=== PATIENT | male | born 1990 | race Caucasian/White ===

== ENCOUNTER 2025-02-21 09:02 | Emergency (ER) | payer OTHER ==
[~2025-02-21] VITALS: Ht 170.2 cm; Wt 97.2 kg
[2025-02-21] MEDS ORDERED: FAMOTIDINE 20 MG/ 2 ML VIAL IV ONE (09:15)
[2025-02-21] MEDS ORDERED: methylPREDNISolone SOD SUCC 125 MG/2 ML VIAL IV ONE (09:15)
[2025-02-21] MEDS ORDERED: diphenhydrAMINE HCL 50 MG/ML VIAL IV ONE (09:15)
[2025-02-21 10:11] VITALS: BP 118/80
== END 2025-02-21 10:10 | disposition home or self-care (01) ==
LOC: ED 09:02
DX: T78.1XXA Other adverse food reactions, not elsewhere classified, initial encounter (principal); J02.9 Acute pharyngitis, unspecified; Z88.2 Allergy status to sulfonamides; Z91.011 Allergy to milk products
CPT/HCPCS: 96374; 96375; 99283-25; J1200; J2919